=== PATIENT | female | born 1945 | race Caucasian/White ===

== ENCOUNTER 2018-01-27 08:23 | Inpatient (IN) | payer MEDICARE ==
[2018-01-27] VITALS (22 sets, daily range): BP systolic 117–177; BP diastolic 58–109
[~2018-01-27] VITALS: Ht 170.2 cm; Wt 62.6 kg
[2018-01-27 11:06] LABS: MAGNESIUM 2.2 MG/DL (1.8-2.4); PHOSPHORUS 2.6 MG/DL (2.3-4.7)
--- NOTE | 2018-01-27 11:08 | Diagnostic Imaging Report ---
INDICATION: Coughing up blood. TIME OF EXAMINATION: 10:38 a.m. COMPARISON: No prior studies are available for comparison. FINDINGS: The heart size is normal. There appears to be some patchy airspace infiltrate in the right lung base suggestive of pneumonia. The remainder of the lung dimas are clear. No effusion or pneumothorax is seen. IMPRESSION: Findings suggestive of right basilar pneumonia. Dictated by: Dictated on workstation # [id number]
[2018-01-27 11:09] LABS: INR 1.1 (0.8-1.4); PROTHROMBIN TIME PATIENT 13.8 SEC (12.2-14.7)
[2018-01-27] MEDS ORDERED: CLON0.2T12 PO (11:09)
[2018-01-27] MEDS ORDERED: CARV12.53 PO (11:09)
[2018-01-27] MEDS ORDERED: ISOS120T6 PO (11:09)
[2018-01-27] MEDS ORDERED: ATOR40TA70 PO (11:09)
[2018-01-27] MEDS ORDERED: AMLO10TA4 PO (11:09)
[2018-01-27] MEDS ORDERED: ASPI-983 PO (11:18)
[2018-01-27] MEDS ORDERED: DIPH25CA79 PO (11:19)
--- NOTE | 2018-01-27 11:56 | Pulmonary Consultation ---
History of Present Illness History of Present Illness Date of Consultation 01/27/18 11:51 Time Seen by Provider: 13:40 Date of Admission History of Present Illness 72yo who has a hx of untreated latent TB in 1971 presented as direct admit [place] [facility] [place] Pt stats her great grandmother of TB. She has had fevers and night sweats. She coughed up a cup full of blood this AM while at [facility] [place]. We are requesting labs from [facility] [place]. She is not on any anticoagulation. She denies melena, hematochezia, epistaxis. No prior episodes like this in the past. Allergies and Home Medications Allergies Coded Allergies: Iodine and Iodide Containing Produc (Verified Allergy, Unknown, 01/27/18) povidone-iodine (Verified Allergy, Unknown, 01/27/18) soap (Verified Allergy, Unknown, 01/27/18) Uncoded Allergies: sulfa (Allergy, Unknown, 01/27/18) Home Medications Amlodipine Besylate 10 Mg Tablet, 10 MG PO DAILY, (Reported) Aspirin 81 Mg Tablet.dr, 81 MG PO DAILY, (Reported) Atorvastatin Calcium 40 Mg Tablet, 40 MG PO HS, (Reported) Carvedilol 12.5 Mg Tablet, 12.5 MG PO BID, (Reported) Clonidine HCl 0.2 Mg Tablet, 0.2 MG PO TID, (Reported) Diphenhydramine HCl 25 Mg Capsule, 50 MG PO HS PRN for SLEEP, (Reported) Isosorbide Mononitrate 120 Mg Tab.er.24h, 120 MG PO HS, (Reported) Past Assxvku-Upikyd-Lligsp Hx Patient Social History Alcohol Use: Denies Use Recreational Drug Use: No Smoking Status: Current Everyday Smoker Type Used: Cigarettes Recent Foreign Travel: No Contact w/Someone Who Travel: No Recent Infectious Disease Expo: No Seasonal Allergies Seasonal Allergies: No Past Medical History Respiratory: Yes Pneumonia Cardiac: Yes Neurological: Yes Genitourinary: No Gastrointestinal: No Musculoskeletal: No Endocrine: No HEENT: No Cancer: No Psychosocial: No Integumentary: No Blood Disorders: No Adverse Reaction/Blood Tranf: Yes Review of Systems Time Seen by Provider: 08:15 Constitutional: Fever, Chills, Sweats, Weakness, Malaise Eyes: No: Pain, Vision change, Conjunctivae inflammation, Eyelid inflammation, Other, Redness ENT: Nose congestion; No: Ear pain, Ear discharge, Nose pain, Nose discharge, Mouth pain, Mouth swelling, Throat pain, Throat swelling, Other Respiratory: Cough, Shortness of breath, Hemoptysis, Sputum Cardiovascular: No: Chest Pain, Palpitations, Orthopnea, Paroxysmal Noc. Dyspnea, Edema, Lt Headedness, Other Gastrointestinal: No: Nausea, Vomiting, Abdominal Pain, Diarrhea, Constipation , Melena, Hematochezia, Other Neurological: Weakness, Incoordination Exam Exam Vital Signs Date Time Temp Pulse Resp B/P (MAP) Pulse Ox O2 Delivery O2 Flow Rate FiO2 01/27/18 11:23 Room Air 01/27/18 11:00 Room Air 01/27/18 10:20 99.2 85 12 117/75 (89) 91 Room Air General Appearance: Anxious, Mild Distress Neck: Supple, JVD Respiratory: No Accessory Muscle Use, No Respiratory Distress, Accessory Muscle Use, Decreased Breath Sounds Gastrointestinal: normal bowel sounds, non tender, soft Extremity: Normal Capillary Refill, Normal Inspection, Non Tender, No Pedal Edema Neurologic/Psychiatric: Alert, Oriented x3 Skin: Normal Color, Warm/Dry Lymphatic: No Adenopathy Assessment/Plan Assessment/Plan -RLL pneumonia -Cameron culture -check labs -Continue Vanco and Zosyn for now Hemoptysis r/o TB/mass -- Pt states she coughed up a cup of dark blood this AM. +fevers and chills -Check CTA -Check TB quantiferon -Change to TB isolation -Check AFB x 3 -Obtain records from [facility] [place] [address] MARILEE SIN DO January 27, 2018 11:56
[2018-01-27] MEDS ORDERED: PHARMACY TO DOSE IV SCH (12:00)
[2018-01-27 12:10] LABS: BASOPHILS # (AUTO) 0.1 10^3/uL (0.0-0.1); BASOPHILS % (AUTO) 0 % (0-10); EOSINOPHILS # (AUTO) 0.3 10^3/uL (0.0-0.3); EOSINOPHILS % (AUTO) 2 % (0-10); HEMATOCRIT 35 % (35-52); HEMOGLOBIN 11.6 G/DL (11.5-16.0); LYMPHOCYTES % (AUTO) 32 % (12-44); MEAN CORPUSCULAR HEMOGLOBIN 30 PG (25-34); MEAN CORPUSCULAR HGB CONC 33 G/DL (32-36); MEAN CORPUSCULAR VOLUME 90 FL (80-99); MEAN PLATELET VOLUME 10.7 FL (7.4-10.4); MONOCYTES # (AUTO) 1.6 X 10^3 (0.0-1.0); MONOCYTES % (AUTO) 10 % (0-12); NEUTROPHILS % (AUTO) 56 % (42-75); PLATELET COUNT 293 10^3/uL (130-400); RED CELL DISTRIBUTION WIDTH 14.2 % (10.0-14.5); WHITE BLOOD COUNT 15.9 10^3/uL (4.3-11.0)
[2018-01-27] MEDS ORDERED: CATHETER FLUSH 10 ML SYR IV PRN (12:30)
[2018-01-27] MEDS ORDERED: PIPERACILLIN/TAZO 4.5 GM/D5W 100 ML IVPB IV NR ×2 (12:30)
[2018-01-27 12:31] LABS: BAND NEUTROPHILS 0 %; BASOPHILS % (MANUAL) 0 %; EOSINOPHILS % (MANUAL) 2 %; LYMPHOCYTES % (MANUAL) 25 %; MONOCYTES % (MANUAL) 6 %; NEUTROPHILS % (MANUAL) 67 %; RBC MORPH NORMAL
[2018-01-27] MEDS ORDERED: VANCOMYCIN 1250 MG/NS 250 ML IVPB IV NR ×2 (13:00)
[2018-01-27 13:31] LABS: BUN/CREATININE RATIO 14; CALCIUM 9.1 MG/DL (8.5-10.1); CARBON DIOXIDE 20 MMOL/L (21-32); CHLORIDE 109 MMOL/L (98-107); CREATININE SERUM 0.72 MG/DL (0.60-1.30); GFR ESTIMATED > 60; GLUCOSE 80 MG/DL (70-105); POTASSIUM 3.6 MMOL/L (3.6-5.0); SODIUM 141 MMOL/L (135-145)
[2018-01-27 13:45] LABS: BILIRUBIN,URINE NEGATIVE (NEGATIVE); CLARITY,URINE CLEAR; COLOR,URINE YELLOW; GLUCOSE, URINE (UA) NEGATIVE (NEGATIVE); KETONES,URINE NEGATIVE (NEGATIVE); LEUKOCYTE ESTERASE ,URINE NEGATIVE (NEGATIVE); NITRITE,URINE NEGATIVE (NEGATIVE); PH,URINE 7 (5-9); PROTEIN,URINE NEGATIVE (NEGATIVE); UROBILINOGEN,URINE NORMAL (NORMAL)
[2018-01-27] MEDS ORDERED: RT-ALBUTEROL/IPRATROPIUM 3 ML (DUONEB) VIAL INH SCH (13:45)
[2018-01-27] MEDS ORDERED: RT-ALBUTEROL/IPRATROPIUM 3 ML (DUONEB) VIAL INH PRN (13:45)
[2018-01-27 13:54] LABS: BACTERIA,URINE NEGATIVE /HPF; SQUAMOUS EPITHELIAL CELL,UR 0-2 /HPF
[2018-01-27] MEDS ORDERED: CATHETER FLUSH 10 ML SYR IV SCH (14:00)
[2018-01-27] MEDS: NS IV 1000 ML 1,000 ML IV SCH (14:47)
--- NOTE | 2018-01-27 14:52 | Diagnostic Imaging Report ---
PROCEDURE: CT chest without contrast. TECHNIQUE: Multiple contiguous axial images were obtained through the chest without the use of intravenous contrast. INDICATION: History of untreated tuberculosis. Patient has hemoptysis. COMPARISON: No prior CT chest is available for comparison. FINDINGS: No axillary lymphadenopathy is identified. The hilar and mediastinal evaluation is somewhat limited due to the absence of intravenous contrast but no gross abnormality is seen. There are coronary arterial calcifications present. No pericardial or pleural fluid is identified. Parenchymal evaluation does show some centrilobular emphysematous changes. The central airways are patent. There are some groundglass infiltrates identified in the right upper lobe medially as well as the right middle lobe and right lower lobe. There is a tiny subpleural nodule in the right lower lobe posteromedially, image 27, measuring 4 mm. A second subpleural nodule posterolaterally in the right lower lobe, image 29, measuring 4 mm. A nodule more inferiorly in the right lower lobe subpleural location measures 8 mm. The left lung is fairly clear. The upper abdomen is unremarkable. IMPRESSION: Patchy groundglass infiltrates are identified in the right upper and right lower lobes as well as the right middle lobe. This is likely on an infectious/inflammatory basis. Tiny areas of greater consolidation are noted in the medial aspect of the right middle lobe and lingula. There are subpleural nodules in the right lower lobe also seen, indeterminate. A followup CT chest in 4-6 months is recommended to confirm clearing of the infiltrates and stability of the subpleural nodules. Dictated by: Dictated on workstation # [id number]
[2018-01-27] MEDS: RT-ALBUTEROL/IPRATROPIUM 3 ML (DUONEB) VIAL INH SCH ×2 (14:53→19:46)
--- NOTE | 2018-01-27 15:08 | History & Physical-Hospitalist ---
History of Present Illness HPI/Chief Complaint Pt is 72yoCF with a PMH of cardiomyopathy, tobaccoism, and HTN who was transferred here [place] [facility]op[place]. She reports that her symptoms started on 01/25 when she coughed up a few tablespoons of blood. She presented to the ER and was diagnosed with RML and RLL PNA. She had 4 more episodes of hemoptysis that were increasing in volume (1 cup this AM) prompting her transfer here for potential bronchoscopy. She states that she feels weak currently and has had low grade fevers but otherwise had felt well before this. She did complain of night sweats and upon further questioning reports she had a +PPD skin test dating back to the 1970s that she does not believe had any further testing. She does not remember having an XR or any further blood work to follow it up. She denies any other lung issues or nay family history of lung disease or cancer. Source: patient Exam Limitations: no limitations Date Seen 01/27/18 Time Seen by Provider: 15:08 Attending Physician Starr Marcial MD PCP Referring Physician Date of Admission January 27, 2018 at 10:20 am Home Medications & Allergies Home Medications Reviewed patient Home Medication Reconciliation performed by pharmacy medication reconciliations hvac technician and/or nursing. Patients Allergies have been reviewed. Allergies Allergies Coded Allergies Iodine and Iodide Containing Produc (Verified Allergy, Unknown, 01/27/18) povidone-iodine (Verified Allergy, Unknown, 01/27/18) soap (Verified Allergy, Unknown, 01/27/18) Uncoded Allergies sulfa ( Allergy, Unknown, 01/27/18) Past Ymrgfua-Jwxjnk-Arhpbk Hx Past Med/Social Hx: Reviewed Nursing Past Med/Soc Hx Patient Social History Alcohol Use: Denies Use Recreational Drug Use: No Smoking Status: Current Everyday Smoker (57 pack year history) Type Used: Cigarettes Physical Abuse Screen: No Sexual Abuse: No Recent Foreign Travel: No Contact w/other who traveled: No Recent Infectious Disease Expo: No Seasonal Allergies Seasonal Allergies: No Past Medical History Surgeries: Hysterectomy Cardiac: Cardiomyopathy, Hypertension History of Blood Disorders: No Adverse Reaction to Blood Mathis: Yes Family History Reviewed Nursing Family Hx Heart Disease, Cancer Review of Systems Constitutional: No chills; fever, other (night sweats) EENTM: No blurred vision, No double vision, No nose congestion, No throat pain Respiratory: cough; No dyspnea on exertion; hemoptysis; No phlegm, No short of breath Cardiovascular: No chest pain, No edema, No palpitations Gastrointestinal: No abdominal pain, No constipation, No diarrhea, No nausea, No vomiting Genitourinary: No dysuria, No frequency Musculoskeletal: No joint pain, No muscle pain Skin: No lesions, No rash Psychiatric/Neurological: Denies Headache, Denies Numbness, Denies Tingling All Other Systems Reviewed Negative Unless Noted: Yes Physical Exam Physical Exam Vital Signs Vital Signs - First Documented Capillary Refill : General Appearance: No Apparent Distress, WD/WN, Thin HEENT: PERRL/EOMI, Moist Mucous Membranes; No Scleral Icterus (L), No Scleral Icterus (R) Neck: Non Tender, Supple; No Thyromegaly Respiratory: Lungs Clear, No Respiratory Distress Cardiovascular: Regular Rate, Rhythm, No JVD, No Murmur Gastrointestinal: Normal Bowel Sounds, Non Tender, Soft Extremity: Normal Capillary Refill, No Calf Tenderness Neurologic/Psychiatric: Alert, Oriented x3, No Motor/Sensory Deficits, Normal Mood/Affect Skin: Normal Color, Warm/Dry Results Results/Procedures Labs Laboratory Tests 01/27/18 10:30 01/27/18 10:40 Patient resulted labs reviewed. Imaging: Reviewed Imaging Report Assessment/Plan Admission Diagnosis Hemoptysis Admission Status: Inpatient Order (span 2 midnights) Reason for Inpatient Admission: Worsening symptoms with IV abx Diagnosis/Problems Diagnosis/Problems (1) Hemoptysis Status: Acute Assessment & Plan: Given history of +PPD, night sweats, and now hemoptysis concerning for TB Will place on TB precaution Quantiferon Gold ordered Pulm consulted for possible bronch, appreciate recs INR normal (2) CAP (community acquired pneumonia) Assessment & Plan: Continue Vanc and Zosyn Cultures drawn [place] [facility] Sorensen states he will forward them to us when available Per report was positive for mycoplasma as well- will add azithromycin Qualifiers: Laterality: right Lung location: unspecified part of lung Qualified Codes : J18.9 - Pneumonia, unspecified organism (3) Hematuria Assessment & Plan: Incidentally noted Will need follow up UA after acute illness-if still positive will need Urology evaluation Qualifiers: Hematuria type: asymptomatic microscopic Qualified Codes: R31.21 - Asymptomatic microscopic hematuria (4) Essential (primary) hypertension Assessment & Plan: Currently well controlled for age Trend Clinical Quality Measures DVT/VTE Risk/Contraindication: Risk Factor Score Per Nursin RFS Level Per Nursing on Admit: 3=High STARR MARCIAL MD January 27, 2018 3:08 pm
[2018-01-27] MEDS: PIPERACILLIN SODIUM/TAZOBACTAM 4.5 GM in D5W 100 ML IVPB 100 ML IV SCH (18:42)
[2018-01-28] VITALS (26 sets, daily range): BP systolic 104–174; BP diastolic 56–125
[2018-01-28] MEDS: PIPERACILLIN SODIUM/TAZOBACTAM 4.5 GM in D5W 100 ML IVPB 100 ML IV SCH ×3 (03:00→20:40)
[2018-01-28 03:41] LABS: BASOPHILS % (AUTO) 0 % (0-10); EOSINOPHILS # (AUTO) 0.3 10^3/uL (0.0-0.3); EOSINOPHILS % (AUTO) 2 % (0-10); HEMATOCRIT 35 % (35-52); LYMPHOCYTES # (AUTO) 4.3 X 10^3 (1.0-4.0); LYMPHOCYTES % (AUTO) 30 % (12-44); MEAN CORPUSCULAR HEMOGLOBIN 31 PG (25-34); MEAN CORPUSCULAR HGB CONC 34 G/DL (32-36); MEAN CORPUSCULAR VOLUME 90 FL (80-99); MEAN PLATELET VOLUME 10.4 FL (7.4-10.4); MONOCYTES # (AUTO) 1.3 X 10^3 (0.0-1.0); MONOCYTES % (AUTO) 9 % (0-12); NEUTROPHILS # (AUTO) 8.6 X 10^3 (1.8-7.8); NEUTROPHILS % (AUTO) 59 % (42-75); PLATELET COUNT 273 10^3/uL (130-400); RED BLOOD COUNT 3.93 10^6/uL (4.35-5.85); RED CELL DISTRIBUTION WIDTH 13.8 % (10.0-14.5); WHITE BLOOD COUNT 14.6 10^3/uL (4.3-11.0)
[2018-01-28 03:58] LABS: BUN/CREATININE RATIO 14; CALCIUM 9.5 MG/DL (8.5-10.1); CARBON DIOXIDE 22 MMOL/L (21-32); CHLORIDE 108 MMOL/L (98-107); CREATININE SERUM 0.78 MG/DL (0.60-1.30); GFR ESTIMATED > 60; GLUCOSE 113 MG/DL (70-105); POTASSIUM 3.9 MMOL/L (3.6-5.0); SODIUM 141 MMOL/L (135-145)
--- NOTE | 2018-01-28 05:12 | Pulmonary Progress Note ---
Subjective Time Seen by Provider: 05:14 Subjective/Events-last exam No Hemoptysis since admission. Focused Exam Lactate Level 01/27/18 12:25: Lactic Acid Level 0.89 Exam Exam Vital Signs Date Time Temp Pulse Resp B/P (MAP) Pulse Ox O2 Delivery O2 Flow Rate FiO2 01/28/18 03:00 89 25 136/80 (98) 94 Room Air 01/28/18 02:00 93 27 139/94 (109) 94 Room Air 01/28/18 01:00 95 01/28/18 01:00 95 23 131/77 (95) 93 Room Air 01/28/18 00:00 94 25 124/73 (90) 92 Room Air 01/28/18 00:00 Room Air 01/27/18 23:00 100 19 127/73 (91) 92 Room Air 01/27/18 22:00 101 27 142/80 (100) 92 Room Air 01/27/18 21:00 91 17 93 Room Air 01/27/18 20:00 Room Air 01/27/18 20:00 98 18 146/109 (121) 93 Room Air 01/27/18 19:46 94 Room Air 01/27/18 19:00 100 20 120/59 (79) 91 Room Air 01/27/18 19:00 100 01/27/18 18:00 87 12 128/58 (81) 91 Room Air 01/27/18 17:00 82 12 147/77 (100) 91 Room Air 01/27/18 16:10 97.8 01/27/18 16:00 88 9 134/78 (96) 93 Room Air 01/27/18 15:32 Room Air 01/27/18 15:00 76 12 145/70 (95) 100 Room Air 01/27/18 14:53 93 Room Air 01/27/18 14:00 92 15 132/85 (101) 90 Room Air 01/27/18 13:45 80 8 138/90 (106) 92 Room Air 01/27/18 13:30 84 12 159/81 (107) 91 Room Air 01/27/18 13:22 98.7 01/27/18 13:15 86 26 176/100 (125) 94 Room Air 01/27/18 13:00 76 16 165/83 (110) 92 Room Air 01/27/18 13:00 77 01/27/18 12:45 82 19 177/89 (118) 92 Room Air 01/27/18 12:30 77 13 92 Room Air 01/27/18 12:15 82 12 128/74 (92) 92 Room Air 01/27/18 12:00 79 7 140/77 (98) 92 Room Air 01/27/18 11:45 75 9 140/82 (101) 92 Room Air 01/27/18 11:30 80 12 153/75 (101) 91 Room Air 01/27/18 11:23 Room Air 01/27/18 11:15 82 15 141/72 (95) 92 Room Air 01/27/18 11:00 Room Air 01/27/18 11:00 84 11 142/79 (100) 94 Room Air 01/27/18 10:45 86 9 152/68 (96) 92 Room Air 01/27/18 10:20 80 01/27/18 10:20 99.2 85 12 117/75 (89) 91 Room Air I & O 01/28/18 07:00 Intake Total 472 ml Balance 472 ml General Appearance: No Apparent Distress, WD/WN, Thin HEENT: PERRL/EOMI, Moist Mucous Membranes; No Scleral Icterus (L), No Scleral Icterus (R) Neck: Non Tender, Supple; No Thyromegaly Respiratory: Lungs Clear, No Respiratory Distress Cardiovascular: Regular Rate, Rhythm, No JVD, No Murmur Capillary Refill: Less Than 3 Seconds Extremity: Normal Capillary Refill, No Calf Tenderness Neurologic/Psychiatric: Alert, Oriented x3, No Motor/Sensory Deficits, Normal Mood/Affect Skin: Normal Color, Warm/Dry Results Lab Laboratory Tests 01/27/18 10:30 01/27/18 10:40 01/28/18 03:12 Assessment/Plan Assessment/Plan -RLL pneumonia -Cameron culture - labs and radiology reviewed -Continue Vanco and Zosyn for now Hemoptysis r/o TB/mass --No hemoptysis since admission -CT scan does not suggest TB. -No fever since admission -TB quantiferon pending -Check AFB x 3 -Continue isolation for now -Pt is currently refusing bronch - AFB was not done on sputum at [facility] [place]. Sputum was lost at [facility] [place] -D/W MARILEE De La Rosa DO January 28, 2018 05:12
[2018-01-28] MEDS: NS IV 1000 ML 1,000 ML IV SCH (05:37)
[2018-01-28] MEDS: KCL 20 MEQ TAB (K-DUR) PO SCH (07:23)
[2018-01-28] MEDS: POTASSIUM CL 10MEQ/50ML IVPB 50 ML IV SCH (07:23)
[2018-01-28] MEDS: MAGNESIUM 1 GM/100 ML IVPB 100 ML IV SCH (07:23)
[2018-01-28] MEDS: RT-ALBUTEROL/IPRATROPIUM 3 ML (DUONEB) VIAL INH SCH ×4 (07:43→19:38)
--- NOTE | 2018-01-28 08:05 | Progress Note-Hospitalist ---
Subjective HPI/CC On Admission Date Seen by Provider: January 28, 2018 Time Seen by Provider: 07:40 Pt is 72yoCF with a PMH of cardiomyopathy, tobaccoism, and HTN who was transferred here from [facility] [place] for pulmonology evaluation of hemoptysis. She reports that her symptoms started on 01/25 when she coughed up a few tablespoons of blood. She presented to the ER and was diagnosed with RML and RLL PNA. She had 4 more episodes of hemoptysis that were increasing in volume (1 cup this AM) prompting her transfer here for potential bronchoscopy. She states that she feels weak currently and has had low grade fevers but otherwise had felt well before this. She did complain of night sweats and upon further questioning reports she had a +PPD skin test dating back to the 1970s that she does not believe had any further testing. She does not remember having an XR or any further blood work to follow it up. She denies any other lung issues or nay family history of lung disease or cancer. Subjective/Events-last exam Pt reports feeling better. No other clots of bleeding with coughing. Still having persistent cough though. Focused Exam Lactate Level 01/27/18 12:25: Lactic Acid Level 0.89 Objective Exam Vital Signs Vital Signs Date Time Temp Pulse Resp B/P (MAP) Pulse Ox O2 Delivery O2 Flow Rate FiO2 01/28/18 06:00 94 24 164/81 (108) Room Air 01/27/18 16:10 97.8 Capillary Refill : General Appearance: No Apparent Distress, WD/WN Respiratory: Lungs Clear, No Respiratory Distress Cardiovascular: Regular Rate, Rhythm, No Murmur Gastrointestinal: Normal Bowel Sounds, Soft Extremity: No Calf Tenderness, No Pedal Edema Neurologic/Psychiatric: Alert, Oriented x3 Results/Procedures Lab Laboratory Tests 01/27/18 10:30 01/27/18 10:40 01/28/18 03:12 Patient resulted labs reviewed. Imaging: Reviewed Imaging Report Assessment/Plan Assessment and Plan Assess & Plan/Chief Complaint CAP with hemoptysis Diagnosis/Problems Diagnosis/Problems (1) Hemoptysis Status: Acute Assessment & Plan: Given history of +PPD, night sweats, and now hemoptysis concerning for TB though unlikely Will place on TB precautions Quantiferon Gold ordered- pending Pulm consulted, appreciate recs INR normal, Hgb Stable Discussed recommendation for bronch with patient to evaluate for possibly underlying mass, she expressed understanding of indications but declined to proceed with procedure Discussed with Dr Hicks (2) CAP (community acquired pneumonia) Assessment & Plan: Continue Vanc and Zosyn Cultures drawn at [facility] [place]- Dr Sorensen states he will forward them to us when available Per report was positive for mycoplasma as well- will add azithromycin Qualifiers: Laterality: right Lung location: unspecified part of lung Qualified Codes : J18.9 - Pneumonia, unspecified organism (3) Hematuria Assessment & Plan: Incidentally noted Will need follow up UA after acute illness-if still positive will need Urology evaluation Qualifiers: Hematuria type: asymptomatic microscopic Qualified Codes: R31.21 - Asymptomatic microscopic hematuria (4) Essential (primary) hypertension Assessment & Plan: Trending up, will resume Coreg (5) Prophylactic measure Assessment & Plan: >24 hours since hemoptysis Will start Lovenox ppx Saline Lock Reg diet Clinical Quality Measures DVT/VTE Risk/Contraindication: Risk Factor Score Per Nursin RFS Level Per Nursing on Admit: 3=High STARR BASSETT MD January 28, 2018 8:05 am
[2018-01-28] MEDS: AZITHROMYCIN 250 MG TAB (ZITHROMAX) PO SCH (08:40)
[2018-01-28] MEDS: ENOXAPARIN 40 MG/0.4 ML (LOVENOX) SYR SC SCH (08:40)
[2018-01-28] MEDS: CARVEDILOL 12.5 MG (COREG) TABLET PO SCH ×2 (08:40→20:40)
[2018-01-28] MEDS ORDERED: VANCOMYCIN 1 GM/NS 250 ML IVPB IV SCH ×2 (09:00)
[2018-01-28] MEDS ORDERED: ATORVASTATIN 40 MG (LIPITOR) TABLET PO SCH (21:00)
[2018-01-29] VITALS (8 sets, daily range): BP systolic 107–151; BP diastolic 68–109
[2018-01-29 04:11] LABS: BASOPHILS % (AUTO) 0 % (0-10); EOSINOPHILS # (AUTO) 0.4 10^3/uL (0.0-0.3); EOSINOPHILS % (AUTO) 3 % (0-10); HEMATOCRIT 31 % (35-52); HEMOGLOBIN 10.4 G/DL (11.5-16.0); LYMPHOCYTES # (AUTO) 3.8 X 10^3 (1.0-4.0); LYMPHOCYTES % (AUTO) 28 % (12-44); MEAN CORPUSCULAR HEMOGLOBIN 30 PG (25-34); MEAN CORPUSCULAR HGB CONC 34 G/DL (32-36); MEAN CORPUSCULAR VOLUME 90 FL (80-99); MEAN PLATELET VOLUME 10.8 FL (7.4-10.4); MONOCYTES # (AUTO) 1.2 X 10^3 (0.0-1.0); MONOCYTES % (AUTO) 9 % (0-12); NEUTROPHILS % (AUTO) 60 % (42-75); PLATELET COUNT 269 10^3/uL (130-400); RED BLOOD COUNT 3.44 10^6/uL (4.35-5.85); RED CELL DISTRIBUTION WIDTH 13.9 % (10.0-14.5); WHITE BLOOD COUNT 13.5 10^3/uL (4.3-11.0)
[2018-01-29 04:42] LABS: BUN/CREATININE RATIO 14; CALCIUM 9.3 MG/DL (8.5-10.1); CARBON DIOXIDE 19 MMOL/L (21-32); CHLORIDE 108 MMOL/L (98-107); GFR ESTIMATED > 60; GLUCOSE 170 MG/DL (70-105); PHOSPHORUS 3.1 MG/DL (2.3-4.7); POTASSIUM 3.5 MMOL/L (3.6-5.0); SODIUM 140 MMOL/L (135-145)
[2018-01-29] MEDS: MAGNESIUM 1 GM/100 ML IVPB 100 ML IV SCH (04:55)
[2018-01-29] MEDS: POTASSIUM CL 10MEQ/50ML IVPB 50 ML IV SCH ×3 (04:55→06:22)
[2018-01-29] MEDS: KCL 20 MEQ TAB (K-DUR) PO SCH (04:55)
[2018-01-29] MEDS: PIPERACILLIN SODIUM/TAZOBACTAM 4.5 GM in D5W 100 ML IVPB 100 ML IV SCH (05:14)
--- NOTE | 2018-01-29 05:40 | Pulmonary Progress Note ---
Subjective Time Seen by Provider: 05:37 Subjective/Events-last exam Pt is feeling improved. No complications noted. Focused Exam Lactate Level 01/27/18 12:25: Lactic Acid Level 0.89 Exam Exam Vital Signs Date Time Temp Pulse Resp B/P (MAP) Pulse Ox O2 Delivery O2 Flow Rate FiO2 01/29/18 05:00 92 10 119/78 (92) 97 Room Air 01/29/18 04:15 98.0 01/29/18 04:15 95 Room Air 01/29/18 04:00 89 12 107/72 (84) 96 Room Air 01/29/18 03:00 109 32 139/77 (97) 96 Room Air 01/29/18 02:00 97 16 122/68 (86) 95 Room Air 01/29/18 01:00 87 01/29/18 01:00 87 18 124/78 (93) 96 Room Air 01/29/18 00:20 95 Room Air 01/29/18 00:20 99.0 Room Air 01/29/18 00:00 112 32 118/78 (91) 93 Room Air 01/28/18 23:00 102 16 128/76 (93) 95 Room Air 01/28/18 22:00 103 18 148/73 (98) 95 Room Air 01/28/18 21:00 105 13 148/78 (101) 96 Room Air 01/28/18 20:00 116 50 104/86 (92) 97 Room Air 01/28/18 20:00 Room Air 01/28/18 19:38 Room Air 01/28/18 19:00 108 39 158/65 (96) 95 Room Air 01/28/18 19:00 89 01/28/18 18:00 93 14 138/100 (113) 95 Room Air 01/28/18 17:00 89 23 140/92 (108) 96 Room Air 01/28/18 16:00 87 21 132/66 (88) 94 Room Air 01/28/18 15:55 Room Air 01/28/18 15:21 Room Air 01/28/18 15:00 84 20 128/67 (87) 96 Room Air 01/28/18 14:00 84 20 124/83 (97) 95 Room Air 01/28/18 13:00 87 18 107/56 (73) 96 Room Air 01/28/18 13:00 87 01/28/18 12:02 Room Air 01/28/18 12:01 98.6 94 16 121/77 (92) 96 Room Air 01/28/18 12:00 87 24 121/77 (92) 95 Room Air 01/28/18 11:41 Room Air 01/28/18 11:00 96 23 121/85 (97) 94 Room Air 01/28/18 10:00 81 131/67 (88) 95 Room Air 01/28/18 09:00 97 16 174/125 (141) Room Air 01/28/18 08:17 97.6 113 20 143/84 (103) Room Air 01/28/18 08:15 Room Air 01/28/18 08:00 104 24 143/84 (103) Room Air 01/28/18 07:45 Room Air 01/28/18 07:00 94 20 149/78 (101) Room Air 01/28/18 07:00 94 01/28/18 06:00 94 24 164/81 (108) Room Air I & O 01/29/18 07:00 Intake Total 3000 ml Balance 3000 ml General Appearance: No Apparent Distress, WD/WN, Thin HEENT: PERRL/EOMI, Moist Mucous Membranes; No Scleral Icterus (L), No Scleral Icterus (R) Neck: Non Tender, Supple; No Thyromegaly Respiratory: Lungs Clear, No Respiratory Distress Cardiovascular: Regular Rate, Rhythm, No JVD, No Murmur Capillary Refill: Less Than 3 Seconds Gastrointestinal: normal bowel sounds, non tender, soft Extremity: Normal Capillary Refill, No Calf Tenderness Neurologic/Psychiatric: Alert, Oriented x3, No Motor/Sensory Deficits, Normal Mood/Affect Skin: Normal Color, Warm/Dry Lymphatic: No Adenopathy Results Lab Laboratory Tests 01/27/18 10:30 01/27/18 10:40 01/28/18 03:12 01/29/18 03:18 Assessment/Plan Assessment/Plan -RLL pneumonia -Cameron cultures pending - labs and radiology reviewed -Continue Zosyn D/C Vanco Hemoptysis r/o TB/mass --No hemoptysis since admission -CT scan does not suggest TB. -No fever since admission -TB quantiferon pending -Check AFB sputum x 3 -Continue isolation for now -Pt is currently refusing bronch -AFB was not done on sputum at [facility]. Sputum was lost at [facility] -D/W MARILEE De La Rosa DO January 29, 2018 05:40
[2018-01-29] MEDS: RT-ALBUTEROL/IPRATROPIUM 3 ML (DUONEB) VIAL INH SCH ×2 (07:07→10:03)
--- NOTE | 2018-01-29 07:21 | Progress Note-Hospitalist ---
Subjective HPI/CC On Admission Date Seen by Provider: January 29, 2018 Time Seen by Provider: 07:18 Pt is 72yoCF with a PMH of cardiomyopathy, tobaccoism, and HTN who was transferred here from [facility] [place] for pulmonology evaluation of hemoptysis. She reports that her symptoms started on 01/25 when she coughed up a few tablespoons of blood. She presented to the ER and was diagnosed with RML and RLL PNA. She had 4 more episodes of hemoptysis that were increasing in volume (1 cup this AM) prompting her transfer here for potential bronchoscopy. She states that she feels weak currently and has had low grade fevers but otherwise had felt well before this. She did complain of night sweats and upon further questioning reports she had a +PPD skin test dating back to the 1970s that she does not believe had any further testing. She does not remember having an XR or any further blood work to follow it up. She denies any other lung issues or nay family history of lung disease or cancer. Subjective/Events-last exam Pt reports feeling much better. Less coughing. No further hemoptysis. Focused Exam Lactate Level 01/27/18 12:25: Lactic Acid Level 0.89 01/29/18 05:54: Lactic Acid Level 0.92 Lactic Acid Level Laboratory Tests Test 01/29/18 05:54 Lactic Acid Level 0.92 MMOL/L (0.50-2.00) Objective Exam Vital Signs Vital Signs Date Time Temp Pulse Resp B/P (MAP) Pulse Ox O2 Delivery O2 Flow Rate FiO2 01/29/18 07:11 96 Room Air 01/29/18 06:00 107 15 151/109 (123) 01/29/18 04:15 98.0 Capillary Refill : Less Than 3 Seconds General Appearance: No Apparent Distress, WD/WN Respiratory: Lungs Clear, No Respiratory Distress Cardiovascular: Regular Rate, Rhythm, No Murmur Gastrointestinal: Normal Bowel Sounds, Non Tender, Soft Extremity: No Calf Tenderness, No Pedal Edema Neurologic/Psychiatric: Alert, Oriented x3, Normal Mood/Affect Results/Procedures Lab Laboratory Tests 01/29/18 03:18 Patient resulted labs reviewed. Imaging: Reviewed Imaging Report Assessment/Plan Assessment and Plan Assess & Plan/Chief Complaint CAP with hemoptysis Diagnosis/Problems Diagnosis/Problems (1) Hemoptysis Status: Acute Assessment & Plan: Given history of +PPD, night sweats, and now hemoptysis concerning for TB though unlikely TB precautions Quantiferon Gold ordered- pending Pulm consulted, appreciate recs INR normal, Hgb Stable Discussed recommendation for bronch with patient to evaluate for possibly underlying mass, she expressed understanding of indications but declined to proceed with procedure Discussed with Dr Hicks- if further hemoptysis patient will likely consent to bronch (2) CAP (community acquired pneumonia) Assessment & Plan: Continue Zosyn, Vanc DC-ed Cultures drawn at [facility] [place]- Dr Sorensen states he will forward them to us when available Unfortunately sputum culture was lost Per report was positive for mycoplasma as well- Cont azithromycin Qualifiers: Laterality: right Lung location: unspecified part of lung Qualified Codes : J18.9 - Pneumonia, unspecified organism (3) Hematuria Assessment & Plan: Incidentally noted Will need follow up UA after acute illness-if still positive will need Urology evaluation Qualifiers: Hematuria type: asymptomatic microscopic Qualified Codes: R31.21 - Asymptomatic microscopic hematuria (4) Essential (primary) hypertension Assessment & Plan: Improved with resumption of Coreg (5) Prophylactic measure Assessment & Plan: >24 hours since hemoptysis Will start Lovenox ppx Saline Lock Reg diet Clinical Quality Measures DVT/VTE Risk/Contraindication: Risk Factor Score Per Nursin RFS Level Per Nursing on Admit: 3=High STARR BASSETT MD January 29, 2018 7:21 am
[2018-01-29] MEDS ORDERED: AMOX-358 PO (07:30)
[2018-01-29] MEDS ORDERED: AZIT250T12 PO (07:31)
--- NOTE | 2018-01-29 07:35 | Discharge Inst-Simple/Standard ---
Discharge Inst-Standard Discharge Medications New, Converted or Re-Newed RX: Transmitted to Pharmacy Patient Instructions/Follow Up Plan of Care/Instructions/FU: Please take your medications as prescribed even if your symptoms resolve. Please follow up with Dr Sorensen in [address] Hicks in 3 weeks. Activity as Tolerated: Yes Discharge Diet: Cardiac Diet Return to The Hospital For: Worsening fevers, shortness of breath, coughing up blood, if you feel you are getting worse. Planned Outpatient Orders/Ref. Pneu Vac Indicated: Yes STARR BASSETT MD January 29, 2018 7:35 am
--- NOTE | 2018-01-29 07:36 | Discharge Summary-Hospitalist ---
Diagnosis/Chief Complaint Date of Admission January 27, 2018 at 10:20 Date of Discharge Discharge Date: January 29, 2018 Admission Diagnosis Hemoptysis Discharge Diagnosis (1) Hemoptysis Status: Acute Assessment & Plan: Given history of +PPD, night sweats, and now hemoptysis concerning for TB though unlikely Quantiferon Gold ordered- negative Pulm consulted, molly recehsan Discussed recommendation for bronch with patient to evaluate for possibly underlying mass, she expressed understanding of indications but declined to proceed with procedure Discussed with Dr Hicks- if further hemoptysis patient will likely consent to bronch (2) CAP (community acquired pneumonia) Assessment & Plan: DC home with Augmentin Cultures drawn at [facility]- Dr Sorensen states he will forward them to us when available Unfortunately sputum culture was lost Per report was positive for mycoplasma as well- Cont azithromycin (3) Hematuria Assessment & Plan: Incidentally noted Will need follow up UA after acute illness-if still positive will need Urology evaluation (4) Essential (primary) hypertension Assessment & Plan: Improved with resumption of Coreg (5) Prophylactic measure Assessment & Plan: >24 hours since hemoptysis Will start Lovenox ppx Saline Lock Reg diet Discharge Summary Procedures/Consulations Pulm- Dr Hicks Discharge Physical Exam Allergies: Coded Allergies: Iodine and Iodide Containing Produc (Verified Allergy, Unknown, 01/27/18) povidone-iodine (Verified Allergy, Unknown, 01/27/18) soap (Verified Allergy, Unknown, 01/27/18) Uncoded Allergies: sulfa (Allergy, Unknown, 01/27/18) Vitals & I&Os Vital Signs Date Time Temp Pulse Resp B/P (MAP) Pulse Ox O2 Delivery O2 Flow Rate FiO2 01/29/18 10:14 01/29/18 09:05 97.2 01/29/18 08:30 95 Room Air 01/29/18 08:00 87 7 General Appearance: Alert, Oriented X3 Respiratory: Clear to Auscultation Cardiovascular: Regular Rate Abdominal: Normal Bowel Sounds, Soft Psych/Mental Status: Mental Status NL, Mood NL Hospital Course Pt was admitted as a transfer from [facility] for hemoptysis sand pulmonology evaluation for possible bronch. Her hemoptysis resolved and she declined bronchoscopy. Due to a history of night sweats, hemoptysis, and reported history of positive PPD she was tested for TB. Her Quantiferon Gold test was negative. She was discharged home in stable condition to complete oral antibiotics as written. Labs (last 24 hrs) Microbiology 01/27/18 Blood Culture - Preliminary, Resulted No growth 01/27/18 MRSA Screen - Final, Complete MRSA not isolated Patient resulted labs reviewed. Pending Labs Imaging: Reviewed Imaging Films, Reviewed Imaging Report Discussion & Recommendations Discharge Planning: >30 minutes discharge planning Discharge Home Medications: Active Scripts Active Azithromycin 250 Mg Tablet 250 Mg PO DAILY Augmentin 875-125 Tablet (Amoxicillin/Potassium Clav) 1 Each Tablet 1 Each PO BID Reported Benadryl (Diphenhydramine HCl) 25 Mg Capsule 50 Mg PO HS PRN Norvasc (Amlodipine Besylate) 10 Mg Tablet 10 Mg PO DAILY Atorvastatin Calcium 40 Mg Tablet 40 Mg PO HS Carvedilol 12.5 Mg Tablet 12.5 Mg PO BID Instructions to patient/family Please see electronic discharge instructions given to patient. Clinical Quality Measures DVT/VTE Risk/Contraindication: Risk Factor Score Per Nursin RFS Level Per Nursing on Admit: 3=High Copy Copies To 1: AURA SORENSEN MD Problem Qualifiers (1) CAP (community acquired pneumonia): Laterality: right Lung location: unspecified part of lung Qualified Codes: J18.9 - Pneumonia, unspecified organism (2) Hematuria: Hematuria type: asymptomatic microscopic Qualified Codes: R31.21 - Asymptomatic microscopic hematuria STARR BASSETT MD January 29, 2018 07:36
[2018-01-29] MEDS ORDERED: TROUGH ORDER-PHARMACY XX NR (08:00)
--- NOTE | 2018-01-29 08:59 | Diagnostic Imaging Report ---
INDICATION: Dyspnea. History of pneumonia. COMPARISON: CT chest and chest radiograph dated 01/27/2018 FINDINGS: Single frontal view of the chest demonstrates normal heart size and pulmonary vascularity. The lungs show significant interval improved aeration of the right lower lung field. No distinct focal consolidation is identified on today's exam. No large pleural effusion or pneumothorax is seen. The visualized osseous structures show no acute abnormalities. IMPRESSION: 1. No acute cardiopulmonary process is identified on today's exam. Dictated by: Dictated on workstation # [id number]
[2018-01-29] MEDS: AZITHROMYCIN 250 MG TAB (ZITHROMAX) PO SCH (09:00)
[2018-01-29] MEDS: CARVEDILOL 12.5 MG (COREG) TABLET PO SCH (09:01)
[2018-01-29] MEDS: ENOXAPARIN 40 MG/0.4 ML (LOVENOX) SYR SC SCH (09:01)
== END 2018-01-29 10:15 | disposition home or self-care (01) | DRG 194 ==
LOC: ICU 10:20
PROVIDERS: ADMIT Family Medicine; ATTEND Family Medicine
DX: J18.9 Pneumonia, unspecified organism (principal); R04.2 Hemoptysis; R76.11 Nonspecific reaction to tuberculin skin test without active tuberculosis; I42.9 Cardiomyopathy, unspecified; I10 Essential (primary) hypertension; R31.21 Asymptomatic microscopic hematuria; R61 Generalized hyperhidrosis; R53.1 Weakness; F17.210 Nicotine dependence, cigarettes, uncomplicated
CPT/HCPCS: 36415; 71045; 71250; 80048; 81000; 82565; 83605; 83735; 83880; 84100; 85007; 85025; 85027; 85610; 85730; 86480; 87040; 87081; 94640; 94664

== ENCOUNTER → 2018-01-27 | Outpatient (CLI) | payer MEDICARE ==
[~2018-01-27] MED LIST: AMLO10TA4 PO; AMOX-358 PO; ASPI-983 PO; ATOR40TA70 PO; AZIT250T12 PO; CARV12.53 PO; CLON0.2T12 PO; DIPH25CA79 PO; ISOS120T6 PO
== END ==
LOC: PREOP 05:47
PROVIDERS: ATTEND Surgery
DX: Z01.818 Encounter for other preprocedural examination (principal)

== ENCOUNTER → 2018-03-24 | Outpatient (CLI) | payer MEDICARE ==
[~2018-03-24] MED LIST changes: +BARIUM SUSPENSION 2.1% (VANILLA SILQ) 450 ML PO ONE; +CATHETER FLUSH 10 ML SYR IV PRN; +IOHEXOL 350 MG/ML 100 ML (OMNIPAQUE 350) VIAL IV ONE; +NS 100 ML (IVPB) BAG IV ONE
--- NOTE | 2018-03-24 15:20 | Diagnostic Imaging Report ---
INDICATION: Lymphoma versus leukemia. Axial imaging through the neck, chest, abdomen and pelvis was performed after the administration of intravenous contrast. Correlation is made with prior CT chest from 01/27/2018. CT NECK: The visualized intracranial structures are unremarkable. The posterior nasopharynx and oropharynx are unremarkable. The larynx is unremarkable. No thyroid masses are seen. Submandibular and parotid glands are symmetric bilaterally. Parapharyngeal fat planes are preserved. No cervical lymphadenopathy is identified. No fluid collection is seen. IMPRESSION: Unremarkable CTA of the neck with contrast. No lymphadenopathy is detected. CT CHEST: No axillary lymphadenopathy is identified. No definite hilar or mediastinal lymphadenopathy is identified. No pericardial or pleural fluid is identified. Central airways are patent. Parenchymal evaluation does show some centrilobular emphysematous change. There has been significant improvement in the appearance of the chest. Previously noted groundglass infiltrates in the right upper and right lower lobe have largely resolved. There is some residual scarring or subsegmental atelectasis in the medial aspect of the right middle lobe. Previously noted nodules in the right lung appear stable. IMPRESSION: Improved appearance of the chest with resolution of groundglass infiltrates since exam from 01/27/2018. Right-sided nodules are stable. No thoracic lymphadenopathy is detected. CT ABDOMEN AND PELVIS: Liver and gallbladder are unremarkable. Pancreas and spleen are unremarkable. No adrenal mass is detected. The kidneys are unremarkable. Aorta is heavily calcified but nonaneurysmal. There is a probable intimal flap in the abdominal aorta at the level of the kidneys over a very short segment consistent with a short segment dissection. Iliacs are heavily calcified. No central retroperitoneal or mesenteric lymphadenopathy is seen. Small and large bowel loops are normal caliber. There is a large amount of stool in the colon suggestive of constipation. Otherwise, no ascites. The bladder is unremarkable. No pelvic lymphadenopathy is seen. IMPRESSION: 1. Constipation. 2. 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 3. No other significant abnormality is detected. Dictated by: Dictated on workstation # [id number]
== END ==
LOC: RAD 13:44
PROVIDERS: ATTEND Internal Medicine Hematology & Oncology
DX: R91.8 Other nonspecific abnormal finding of lung field (principal); D47.9 Neoplasm of uncertain behavior of lymphoid, hematopoietic and related tissue, unspecified; K59.00 Constipation, unspecified; I70.0 Atherosclerosis of aorta; I70.8 Atherosclerosis of other arteries
CPT/HCPCS: 70491; 71260; 74176

== ENCOUNTER 2018-03-27 10:43 | Outpatient (RCR) | payer MEDICARE ==
[2018-02-24 14:36] LABS: BASOPHILS % (AUTO) 0 % (0-10); EOSINOPHILS # (AUTO) 0.4 10^3/uL (0.0-0.3); EOSINOPHILS % (AUTO) 4 % (0-10); HEMATOCRIT 37 % (35-52); HEMOGLOBIN 12.2 G/DL (11.5-16.0); LYMPHOCYTES # (AUTO) 4.3 X 10^3 (1.0-4.0); LYMPHOCYTES % (AUTO) 44 % (12-44); MEAN CORPUSCULAR HEMOGLOBIN 30 PG (25-34); MEAN CORPUSCULAR HGB CONC 33 G/DL (32-36); MEAN CORPUSCULAR VOLUME 91 FL (80-99); MONOCYTES # (AUTO) 0.8 X 10^3 (0.0-1.0); MONOCYTES % (AUTO) 8 % (0-12); NEUTROPHILS # (AUTO) 4.2 X 10^3 (1.8-7.8); NEUTROPHILS % (AUTO) 44 % (42-75); PLATELET COUNT 257 10^3/uL (130-400); RED BLOOD COUNT 4.03 10^6/uL (4.35-5.85); RED CELL DISTRIBUTION WIDTH 14.1 % (10.0-14.5); WHITE BLOOD COUNT 9.7 10^3/uL (4.3-11.0)
[2018-02-24 14:56] LABS: ALANINE AMINOTRANSFERASE 12 U/L (0-55); ALBUMIN 4.4 GM/DL (3.2-4.5); ALKALINE PHOSPHATASE 111 U/L (40-136); BILIRUBIN,TOTAL 0.5 MG/DL (0.1-1.0); BUN/CREATININE RATIO 12; CALCIUM 9.2 MG/DL (8.5-10.1); CARBON DIOXIDE 25 MMOL/L (21-32); CHLORIDE 105 MMOL/L (98-107); CREATININE SERUM 0.83 MG/DL (0.60-1.30); GFR ESTIMATED > 60; GLUCOSE 101 MG/DL (70-105); POTASSIUM 3.9 MMOL/L (3.6-5.0); SODIUM 139 MMOL/L (135-145); TOTAL PROTEIN 7.1 GM/DL (6.4-8.2)
[~2018-03-27 10:43] MED LIST changes: -BARIUM SUSPENSION 2.1% (VANILLA SILQ) 450 ML PO ONE; -CATHETER FLUSH 10 ML SYR IV PRN; -IOHEXOL 350 MG/ML 100 ML (OMNIPAQUE 350) VIAL IV ONE; -NS 100 ML (IVPB) BAG IV ONE
== END 2018-05-25 | disposition home or self-care (01) ==
LOC: ONC 10:43
PROVIDERS: ATTEND Internal Medicine Hematology & Oncology
DX: D72.820 Lymphocytosis (symptomatic) (principal); F17.210 Nicotine dependence, cigarettes, uncomplicated; Z86.73 Personal history of transient ischemic attack (TIA), and cerebral infarction without residual deficits; I10 Essential (primary) hypertension; E78.00 Pure hypercholesterolemia, unspecified; I25.10 Atherosclerotic heart disease of native coronary artery without angina pectoris
CPT/HCPCS: 36415; 80053; 82784; 83615; 83883; 84155; 84165; 85025; 88184; 88185; 99213; 99214

== ENCOUNTER 2018-06-24 14:46 | Outpatient (RCR) | payer MEDICARE ==
[2018-06-24 15:08] LABS: BASOPHILS # (AUTO) 0.1 10^3/uL (0.0-0.1); BASOPHILS % (AUTO) 1 % (0-10); EOSINOPHILS # (AUTO) 0.3 10^3/uL (0.0-0.3); EOSINOPHILS % (AUTO) 3 % (0-10); HEMATOCRIT 38 % (35-52); HEMOGLOBIN 12.7 G/DL (11.5-16.0); LYMPHOCYTES # (AUTO) 3.9 X 10^3 (1.0-4.0); LYMPHOCYTES % (AUTO) 37 % (12-44); MEAN CORPUSCULAR HEMOGLOBIN 29 PG (25-34); MEAN CORPUSCULAR HGB CONC 34 G/DL (32-36); MEAN CORPUSCULAR VOLUME 87 FL (80-99); MEAN PLATELET VOLUME 10.4 FL (7.4-10.4); MONOCYTES # (AUTO) 0.8 X 10^3 (0.0-1.0); MONOCYTES % (AUTO) 8 % (0-12); NEUTROPHILS # (AUTO) 5.5 X 10^3 (1.8-7.8); NEUTROPHILS % (AUTO) 52 % (42-75); PLATELET COUNT 294 10^3/uL (130-400); RED BLOOD COUNT 4.35 10^6/uL (4.35-5.85); RED CELL DISTRIBUTION WIDTH 14.9 % (10.0-14.5); WHITE BLOOD COUNT 10.6 10^3/uL (4.3-11.0)
[2018-06-24 15:35] LABS: ALANINE AMINOTRANSFERASE 15 U/L (0-55); ALBUMIN 4.4 GM/DL (3.2-4.5); ALKALINE PHOSPHATASE 100 U/L (40-136); BILIRUBIN,TOTAL 0.7 MG/DL (0.1-1.0); BUN/CREATININE RATIO 11; CALCIUM 9.4 MG/DL (8.5-10.1); CARBON DIOXIDE 23 MMOL/L (21-32); CHLORIDE 106 MMOL/L (98-107); CREATININE SERUM 0.76 MG/DL (0.60-1.30); GFR ESTIMATED > 60; GLUCOSE 121 MG/DL (70-105); POTASSIUM 3.4 MMOL/L (3.6-5.0); SODIUM 139 MMOL/L (135-145); TOTAL PROTEIN 6.9 GM/DL (6.4-8.2)
[2018-09-23 15:17] LABS: BASOPHILS # (AUTO) 0.1 10^3/uL (0.0-0.1); BASOPHILS % (AUTO) 0 % (0-10); EOSINOPHILS # (AUTO) 0.2 10^3/uL (0.0-0.3); EOSINOPHILS % (AUTO) 2 % (0-10); HEMATOCRIT 41 % (35-52); HEMOGLOBIN 13.7 G/DL (11.5-16.0); LYMPHOCYTES # (AUTO) 4.4 X 10^3 (1.0-4.0); LYMPHOCYTES % (AUTO) 32 % (12-44); MEAN CORPUSCULAR HEMOGLOBIN 30 PG (25-34); MEAN CORPUSCULAR HGB CONC 33 G/DL (32-36); MEAN CORPUSCULAR VOLUME 88 FL (80-99); MEAN PLATELET VOLUME 10.4 FL (7.4-10.4); MONOCYTES # (AUTO) 0.9 X 10^3 (0.0-1.0); MONOCYTES % (AUTO) 7 % (0-12); NEUTROPHILS # (AUTO) 8.4 X 10^3 (1.8-7.8); NEUTROPHILS % (AUTO) 60 % (42-75); PLATELET COUNT 323 10^3/uL (130-400); RED BLOOD COUNT 4.65 10^6/uL (4.35-5.85); RED CELL DISTRIBUTION WIDTH 14.7 % (10.0-14.5)
[2018-09-23 15:38] LABS: ALANINE AMINOTRANSFERASE 23 U/L (0-55); ALBUMIN 4.7 GM/DL (3.2-4.5); ALKALINE PHOSPHATASE 121 U/L (40-136); BILIRUBIN,TOTAL 0.3 MG/DL (0.1-1.0); BUN/CREATININE RATIO 9; CALCIUM 9.9 MG/DL (8.5-10.1); CARBON DIOXIDE 25 MMOL/L (21-32); CHLORIDE 107 MMOL/L (98-107); CREATININE SERUM 0.89 MG/DL (0.60-1.30); GFR ESTIMATED > 60; GLUCOSE 110 MG/DL (70-105); POTASSIUM 3.8 MMOL/L (3.6-5.0); SODIUM 143 MMOL/L (135-145); TOTAL PROTEIN 7.5 GM/DL (6.4-8.2)
== END 2018-09-22 | disposition home or self-care (01) ==
LOC: ONC 14:46
PROVIDERS: ATTEND Internal Medicine Hematology & Oncology
DX: C91.10 Chronic lymphocytic leukemia of B-cell type not having achieved remission (principal); D72.829 Elevated white blood cell count, unspecified; R61 Generalized hyperhidrosis; Z79.82 Long term (current) use of aspirin; Z79.899 Other long term (current) drug therapy
CPT/HCPCS: 36415; 80053; 83615; 85025; 99213

== ENCOUNTER 2018-09-23 15:03 | Outpatient (RCR) | payer MEDICARE ==
[~2018-09-23 15:03] MED LIST changes: -ISOS120T6 PO; +ISOS120T9 PO
[2018-09-23 15:17] LABS: BASOPHILS # (AUTO) 0.1 10^3/uL (0.0-0.1); BASOPHILS % (AUTO) 0 % (0-10); EOSINOPHILS # (AUTO) 0.2 10^3/uL (0.0-0.3); EOSINOPHILS % (AUTO) 2 % (0-10); HEMATOCRIT 41 % (35-52); HEMOGLOBIN 13.7 G/DL (11.5-16.0); LYMPHOCYTES # (AUTO) 4.4 X 10^3 (1.0-4.0); LYMPHOCYTES % (AUTO) 32 % (12-44); MEAN CORPUSCULAR HEMOGLOBIN 30 PG (25-34); MEAN CORPUSCULAR HGB CONC 33 G/DL (32-36); MEAN CORPUSCULAR VOLUME 88 FL (80-99); MEAN PLATELET VOLUME 10.4 FL (7.4-10.4); MONOCYTES # (AUTO) 0.9 X 10^3 (0.0-1.0); MONOCYTES % (AUTO) 7 % (0-12); NEUTROPHILS # (AUTO) 8.4 X 10^3 (1.8-7.8); NEUTROPHILS % (AUTO) 60 % (42-75); PLATELET COUNT 323 10^3/uL (130-400); RED CELL DISTRIBUTION WIDTH 14.7 % (10.0-14.5)
[2018-09-23 15:38] LABS: ALANINE AMINOTRANSFERASE 23 U/L (0-55); ALBUMIN 4.7 GM/DL (3.2-4.5); ALKALINE PHOSPHATASE 121 U/L (40-136); BILIRUBIN,TOTAL 0.3 MG/DL (0.1-1.0); BUN/CREATININE RATIO 9; CALCIUM 9.9 MG/DL (8.5-10.1); CARBON DIOXIDE 25 MMOL/L (21-32); CHLORIDE 107 MMOL/L (98-107); CREATININE SERUM 0.89 MG/DL (0.60-1.30); GFR ESTIMATED > 60; GLUCOSE 110 MG/DL (70-105); POTASSIUM 3.8 MMOL/L (3.6-5.0); SODIUM 143 MMOL/L (135-145); TOTAL PROTEIN 7.5 GM/DL (6.4-8.2)
== END 2018-12-22 | disposition home or self-care (01) ==
LOC: ONC 15:03
PROVIDERS: ATTEND Internal Medicine Hematology & Oncology
DX: C91.10 Chronic lymphocytic leukemia of B-cell type not having achieved remission (principal); D72.829 Elevated white blood cell count, unspecified; R61 Generalized hyperhidrosis; Z79.82 Long term (current) use of aspirin; Z79.899 Other long term (current) drug therapy
CPT/HCPCS: 36415; 80053; 83615; 85025; 99213

== ENCOUNTER 2018-12-25 14:56 | Outpatient (RCR) | payer MEDICARE ==
[2018-12-25 15:06] LABS: BASOPHILS # (AUTO) 0.1 10^3/uL (0.0-0.1); BASOPHILS % (AUTO) 0 % (0-10); EOSINOPHILS # (AUTO) 0.3 10^3/uL (0.0-0.3); EOSINOPHILS % (AUTO) 2 % (0-10); HEMATOCRIT 40 % (35-52); HEMOGLOBIN 13.4 G/DL (11.5-16.0); LYMPHOCYTES # (AUTO) 4.9 X 10^3 (1.0-4.0); LYMPHOCYTES % (AUTO) 28 % (12-44); MEAN CORPUSCULAR HEMOGLOBIN 30 PG (25-34); MEAN CORPUSCULAR HGB CONC 34 G/DL (32-36); MEAN CORPUSCULAR VOLUME 89 FL (80-99); MEAN PLATELET VOLUME 10.3 FL (7.4-10.4); MONOCYTES # (AUTO) 1.3 X 10^3 (0.0-1.0); MONOCYTES % (AUTO) 8 % (0-12); NEUTROPHILS # (AUTO) 10.7 X 10^3 (1.8-7.8); NEUTROPHILS % (AUTO) 62 % (42-75); PLATELET COUNT 298 10^3/uL (130-400); RED CELL DISTRIBUTION WIDTH 14.6 % (10.0-14.5); WHITE BLOOD COUNT 17.3 10^3/uL (4.3-11.0)
[2018-12-25 15:24] LABS: ALANINE AMINOTRANSFERASE 25 U/L (0-55); ALBUMIN 4.4 GM/DL (3.2-4.5); ALKALINE PHOSPHATASE 115 U/L (40-136); BILIRUBIN,TOTAL 0.4 MG/DL (0.1-1.0); BUN/CREATININE RATIO 11; CALCIUM 9.7 MG/DL (8.5-10.1); CARBON DIOXIDE 25 MMOL/L (21-32); CHLORIDE 105 MMOL/L (98-107); CREATININE SERUM 0.88 MG/DL (0.60-1.30); GFR ESTIMATED > 60; GLUCOSE 140 MG/DL (70-105); SODIUM 138 MMOL/L (135-145)
== END 2019-03-25 | disposition home or self-care (01) ==
LOC: ONC 14:56
PROVIDERS: ATTEND Internal Medicine Hematology & Oncology
DX: C91.10 Chronic lymphocytic leukemia of B-cell type not having achieved remission (principal); R61 Generalized hyperhidrosis; Z79.82 Long term (current) use of aspirin; Z79.899 Other long term (current) drug therapy; Z72.0 Tobacco use
CPT/HCPCS: 36415; 80053; 83615; 85025; 99213

== ENCOUNTER 2019-03-31 14:57 | Outpatient (RCR) | payer MEDICARE ==
[2019-03-31 15:30] LABS: BASOPHILS # (AUTO) 0.1 10^3/uL (0.0-0.1); BASOPHILS % (AUTO) 0 % (0-10); EOSINOPHILS # (AUTO) 0.4 10^3/uL (0.0-0.3); EOSINOPHILS % (AUTO) 4 % (0-10); HEMATOCRIT 38 % (35-52); HEMOGLOBIN 12.6 G/DL (11.5-16.0); LYMPHOCYTES # (AUTO) 4.5 X 10^3 (1.0-4.0); LYMPHOCYTES % (AUTO) 40 % (12-44); MEAN CORPUSCULAR HEMOGLOBIN 30 PG (25-34); MEAN CORPUSCULAR HGB CONC 33 G/DL (32-36); MEAN CORPUSCULAR VOLUME 90 FL (80-99); MEAN PLATELET VOLUME 10.1 FL (7.4-10.4); MONOCYTES # (AUTO) 0.8 X 10^3 (0.0-1.0); MONOCYTES % (AUTO) 7 % (0-12); NEUTROPHILS # (AUTO) 5.5 X 10^3 (1.8-7.8); NEUTROPHILS % (AUTO) 49 % (42-75); PLATELET COUNT 284 10^3/uL (130-400); RED CELL DISTRIBUTION WIDTH 14.2 % (10.0-14.5); WHITE BLOOD COUNT 11.2 10^3/uL (4.3-11.0)
[2019-03-31 15:52] LABS: ALBUMIN 4.3 GM/DL (3.2-4.5); BILIRUBIN,TOTAL 0.4 MG/DL (0.1-1.0); CALCIUM 9.7 MG/DL (8.5-10.1); CREATININE SERUM 0.94 MG/DL (0.60-1.30); TOTAL PROTEIN 6.8 GM/DL (6.4-8.2)
== END 2019-06-29 | disposition home or self-care (01) ==
LOC: ONC 14:57
PROVIDERS: ATTEND Internal Medicine Hematology & Oncology
DX: C91.10 Chronic lymphocytic leukemia of B-cell type not having achieved remission (principal); R61 Generalized hyperhidrosis; Z79.82 Long term (current) use of aspirin; Z79.899 Other long term (current) drug therapy; Z72.0 Tobacco use
CPT/HCPCS: 36415; 80053; 83615; 85025; 99213

== ENCOUNTER → 2019-10-15 | Outpatient (CLI) | payer MEDICARE ==
[2019-10-15 15:22] LABS: BASOPHILS # (AUTO) 0.1 10^3/uL (0.0-0.1); BASOPHILS % (AUTO) 1 % (0-10); EOSINOPHILS # (AUTO) 0.3 10^3/uL (0.0-0.3); EOSINOPHILS % (AUTO) 3 % (0-10); HEMATOCRIT 42 % (35-52); HEMOGLOBIN 14.2 G/DL (11.5-16.0); LYMPHOCYTES # (AUTO) 4.5 X 10^3 (1.0-4.0); LYMPHOCYTES % (AUTO) 37 % (12-44); MEAN CORPUSCULAR HEMOGLOBIN 30 PG (25-34); MEAN CORPUSCULAR HGB CONC 34 G/DL (32-36); MEAN CORPUSCULAR VOLUME 88 FL (80-99); MEAN PLATELET VOLUME 10.4 FL (7.4-10.4); MONOCYTES # (AUTO) 0.9 X 10^3 (0.0-1.0); MONOCYTES % (AUTO) 7 % (0-12); NEUTROPHILS # (AUTO) 6.5 X 10^3 (1.8-7.8); NEUTROPHILS % (AUTO) 53 % (42-75); PLATELET COUNT 336 10^3/uL (130-400); WHITE BLOOD COUNT 12.3 10^3/uL (4.3-11.0)
[2019-10-15 15:44] LABS: ALBUMIN 4.5 GM/DL (3.2-4.5); BILIRUBIN,TOTAL 0.4 MG/DL (0.1-1.0); CREATININE SERUM 1.03 MG/DL (0.60-1.30); POTASSIUM 3.2 MMOL/L (3.6-5.0); TOTAL PROTEIN 7.5 GM/DL (6.4-8.2)
== END ==
LOC: EDSTATUS 06-30 16:47 → ONC 15:06
PROVIDERS: ATTEND Internal Medicine Hematology & Oncology
DX: C91.10 Chronic lymphocytic leukemia of B-cell type not having achieved remission (principal); Z79.82 Long term (current) use of aspirin; Z79.899 Other long term (current) drug therapy; Z72.0 Tobacco use
CPT/HCPCS: 80053; 83615; 85025; 99213

== ENCOUNTER → 2020-10-12 | Outpatient (CLI) | payer OTHER, MEDICARE ==
[~2020-10-12] MED LIST changes: +ASPI-1238 PO; -ASPI-983 PO
== END ==
LOC: LABNPT 16:09
PROVIDERS: ATTEND Nurse Practitioner Family
DX: Z01.89 Encounter for other specified special examinations (principal)
CPT/HCPCS: 84145

== ENCOUNTER → 2021-02-07 | Outpatient (CLI) | payer MEDICARE ==
[2021-02-07 15:22] LABS: BASOPHILS # (AUTO) 0.1 10^3/uL (0.0-0.1); BASOPHILS % (AUTO) 1 % (0-10); EOSINOPHILS # (AUTO) 0.4 10^3/uL (0.0-0.3); EOSINOPHILS % (AUTO) 3 % (0-10); HEMATOCRIT 38 % (35-52); HEMOGLOBIN 12.6 g/dL (11.5-16.0); LYMPHOCYTES # (AUTO) 5.1 10^3/uL (1.0-4.0); LYMPHOCYTES % (AUTO) 41 % (12-44); MEAN CORPUSCULAR HEMOGLOBIN 29 pg (25-34); MEAN CORPUSCULAR HGB CONC 33 g/dL (32-36); MEAN CORPUSCULAR VOLUME 88 fL (80-99); MEAN PLATELET VOLUME 10.3 fL (9.0-12.2); MONOCYTES % (AUTO) 8 % (0-12); NEUTROPHILS # (AUTO) 5.8 10^3/uL (1.8-7.8); NEUTROPHILS % (AUTO) 47 % (42-75); PLATELET COUNT 289 10^3/uL (130-400); WHITE BLOOD COUNT 12.4 10^3/uL (4.3-11.0)
[2021-02-07 15:43] LABS: ALBUMIN 4.3 GM/DL (3.2-4.5); BILIRUBIN,TOTAL 0.4 MG/DL (0.1-1.0); CALCIUM 9.5 MG/DL (8.5-10.1); CREATININE SERUM 1.21 MG/DL (0.60-1.30); POTASSIUM 3.4 MMOL/L (3.6-5.0); TOTAL PROTEIN 7.1 GM/DL (6.4-8.2)
== END ==
LOC: ONC 15:15
PROVIDERS: ATTEND Internal Medicine Hematology & Oncology
DX: C91.10 Chronic lymphocytic leukemia of B-cell type not having achieved remission (principal)
CPT/HCPCS: 80053; 83615; 85025; G0463; 99213